=== PATIENT | female | born 1935 | race African-American/Black ===

== ENCOUNTER 2016-12-26 14:15 | Emergency (ER) | payer OTHER ==
[~2016-12-26] VITALS: Ht 165.1 cm; Wt 72.6 kg
--- NOTE | ~2016-12-26 | EKG ---
[place] [address] [facility] [place] [address] ELECTROCARDIOGRAM REPORT Name: BEVERLY HEAD Room #: DEP CHIVO Wright#: [id number] Admission: 12/26/16 Attend Phys: Discharge: 12/26/16 Date of : 33 Report #: [id number] THIS REPORT FOR: //name// [facility] ED Test Date: 2016-12-26 Test Time: 14:37:54 Pat Name: BEVERLY HEAD Department: Room: Gender: F Chief Engineering Division: [id number] : 1935 Requested By: Gayathri Strong Order Number: [id number] MD: Angel Triana Measurements Intervals [place] Rate: 63 P: 15 WY: 184 QRS: 8 QRSD: 88 T: 106 QT: 440 QTc: 451 Interpretive Statements Sinus rhythm LVH by voltage Nonspecific T abnormalities, lateral leads Compared to ECG 09/21/2014 10:04:20 Left ventricular hypertrophy now present T-wave abnormality now present Possible ischemia no longer present Prolonged QT interval no longer present Electronically Signed On 12-26-2016 22:45:11 CDT by Angel Triana [email or web address] <ELECTRONICALLY SIGNED> By: Angel Triana MD 12/26/16 2245 1437 1437 Angel Triana MD /EPI
[~2016-12-26 14:15] MED LIST: AMLODIPINE BESY10 MG PO; AZOR 10-20 MG1 EACH PO; EXELON 9.5 MG9.5 MG TD; EXELON1 EAC1 TD; EXELON1 EACH TRANSDERM; FOLTANX TABLET1 EACH PO; K-DUR 20 MEQ T20 MEQ PO; NAMENDA 10 MG T10 MG PO; NOHOMEMEDICATIONS; PHENERGAN 25 MG25 M1 PO; POTASSIUM20 PO; SEROQUEL 25 MG25 M1 PO
[2016-12-26 14:43] LABS: ABSOLUTE NEUTROPHILS 2.3 thou/uL (1.4-8.2); BASOPHILS 0.6 % (0.0-2.0); EOSINOPHILS 0.8 % (0.0-3.0); HEMATOCRIT 38.3 % (37.0-47.0); HEMOGLOBIN 12.7 gm/dL (12.0-15.0); LYMPHOCYTES 26.6 % (24.0-44.0); MCH 29.2 pg (26.0-34.0); MCHC 33.3 g/dL (28.0-37.0); MCV 87.8 fL (80.0-100.0); PLATELET COUNT 249 thou/uL (150-400); RBC 4.36 mil/uL (4.20-5.00); RDW 13.9 % (10.5-14.5); WBC 3.6 thou/uL (4.0-11.0)
[2016-12-26 14:44] LABS: MANUAL DIFF NO
[2016-12-26 15:00] LABS: ANION GAP 11 mmol/L (7-16); BUN 17 mg/dL (7-18); CALCIUM 8.8 mg/dL (8.5-10.1); CHLORIDE 103 mmol/L (98-107); CO2 24 mmol/L (21-32); CREATININE 1.4 mg/dL (0.6-1.0); GLUCOSE 152 mg/dL (74-106); POTASSIUM 3.7 mmol/L (3.5-5.1); SODIUM 138 mmol/L (136-145)
[2016-12-26 15:03] LABS: ALBUMIN 3.3 g/dL (3.4-5.0); ALKALINE PHOSPHATASE 71 U/L (46-116); DIRECT BILIRUBIN < 0.1 mg/dL (<0.1-0.3); SGOT 36 U/L (15-37); SGPT 25 U/L (30-65); TOTAL BILIRUBIN 0.7 mg/dL (<0.1-1.0); TOTAL PROTEIN 7.5 g/dL (6.4-8.2); TROPONIN-I < 0.04 ng/mL (<0.04-0.07)
[2016-12-26 15:56] LABS: URINE BILIRUBIN NEGATIVE (Negative); URINE BLOOD NEGATIVE (Negative); URINE COLOR YELLOW; URINE GLUCOSE-RANDOM* NEGATIVE (Negative); URINE KETONES 1+ (Negative); URINE PROTEIN (DIPSTICK) NEGATIVE (Negative); URINE SPECIFIC GRAVITY 1.015 (1.003-1.035)
[2016-12-26 15:57] LABS: URINE LEUKOCYTES-REFLEX 1+ (Negative)
[2016-12-26 16:06] LABS: CASTS None Seen /LPF (None Seen); CRYSTALS None Seen /LPF (None Seen); SQUAMOUS 0-3 Few /LPF (0-3); URINE RBC None Seen /HPF (0-2); URINE WBC-REFLEX 0-5 Rare /HPF (0-5)
[2016-12-26] MEDS ORDERED: KEFLEX500 MG PO (18:06)
[2016-12-26 18:31] VITALS: BP 122/64
== END 2016-12-26 18:32 | disposition home or self-care (01) ==
LOC: ER 14:15
PROVIDERS: Emergency Medicine
DX: N39.0 Urinary tract infection, site not specified (principal); E87.2 Acidosis; F03.90 Unspecified dementia, unspecified severity, without behavioral disturbance, psychotic disturbance, mood disturbance, and anxiety; I10 Essential (primary) hypertension

== ENCOUNTER 2019-01-08 10:08 | Inpatient (IN) | payer OTHER ==
[~2019-01-08] VITALS: Ht 157.5 cm; Wt 46.3 kg
[~2019-01-08 10:08] MED LIST changes: +KEFLEX500 MG PO
[2019-01-08 10:09] VITALS: BP 137/59
[2019-01-08 10:46] LABS: ABSOLUTE NEUTROPHILS 3.1 thou/uL (1.4-8.2); BASOPHILS 0.5 % (0.0-2.0); EOSINOPHILS 0.7 % (0.0-3.0); HEMATOCRIT 39.6 % (37.0-47.0); HEMOGLOBIN 13.7 gm/dL (12.0-15.0); LYMPHOCYTES 28.5 % (24.0-44.0); MCH 29.6 pg (26.0-34.0); MCHC 34.5 g/dL (28.0-37.0); MCV 85.8 fL (80.0-100.0); MONOCYTES 7.8 % (1.0-8.0); PLATELET COUNT 250 thou/uL (150-400); POLYS 62.5 % (36.0-66.0); RBC 4.62 mil/uL (4.20-5.00)
[2019-01-08 10:56] LABS: ANION GAP 11 mmol/L (7-16); BUN 14 mg/dL (7-18); CALCIUM 9.5 mg/dL (8.5-10.1); CHLORIDE 103 mmol/L (98-107); CO2 25 mmol/L (21-32); CREATININE 1.6 mg/dL (0.6-1.0); GLUCOSE 162 mg/dL (74-106); POTASSIUM 3.5 mmol/L (3.5-5.1); SODIUM 139 mmol/L (136-145)
[2019-01-08 11:01] LABS: URINE BILIRUBIN NEGATIVE (Negative); URINE BLOOD NEGATIVE (Negative); URINE CLARITY SL CLOUDY; URINE COLOR YELLOW; URINE GLUCOSE-RANDOM* NEGATIVE (Negative); URINE KETONES NEGATIVE (Negative); URINE LEUKOCYTES-REFLEX NEGATIVE (Negative); URINE NITRITE-REFLEX NEGATIVE (Negative); URINE PROTEIN (DIPSTICK) NEGATIVE (Negative)
[2019-01-08 11:05] LABS: ALBUMIN 3.6 g/dL (3.4-5.0); MAGNESIUM 2.2 mg/dL (1.8-2.4); SGOT 17 U/L (15-37); SGPT 8 U/L (30-65); TOTAL BILIRUBIN 0.9 mg/dL (<0.1-1.0); TOTAL PROTEIN 7.7 g/dL (6.4-8.2); TROPONIN-I <0.06 ng/mL (<0.06)
[2019-01-08 11:11] LABS: AMP/METHAMP Negative (Negative); BARBITURATES Negative (Negative); BENZODIAZEPINES Negative (Negative); COCAINE Negative (Negative); METHADONE Negative (Negative); OPIATES Negative (Negative); PCP Negative (Negative)
[2019-01-08 12:55] VITALS: BP 104/51
--- NOTE | 2019-01-08 13:58 | EKG ---
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
[2019-01-08 14:14] LABS: CHOLESTEROL 219 mg/dL (<200); HDL CHOLESTEROL 63 mg/dL (>40); LDL CHOLESTEROL 132 mg/dL (<100); TC:HDL 3.5 Ratio (Not establshd); TRIGLYCERIDE 122 mg/dL (<150); VLDL 24 mg/dL (<40)
[2019-01-08 14:41] LABS: FOLIC ACID 10.8 ng/mL (8.6-58.9); TSH 5.21 uIU/mL (0.358-3.740)
--- NOTE | 2019-01-08 15:43 | 2DMMODE ---
[facility] [place] [address] 2 D/M-MODE ECHOCARDIOGRAM Name: BEVERLY HEAD Room #: 170-10 ADM IN M.R.#: [id number] Admission: 01/08/19 Attend Phys: Walker Hwang Discharge: Date of : 33 Report #: [id number] THIS REPORT FOR: //name// APPROVED REPORT Study performed: 01/08/2019 14:14:03 EXAM: Comprehensive 2D, Doppler, and color-flow Echocardiogram Patient Location: ER Room #: 10 Status: routine BSA: 1.56 HR: 62 bpm BP: 113/65 mmHg Rhythm: NSR Other Information Study Quality: Adequate Technically limited study due to inability to position patient. Indications Syncope 2D Dimensions IVSd: 11.71 (7-11mm) LVOT Diam: 17.05 (18-24mm) LVDd: 35.60 mm PWd: 10.04 (7-11mm) Ascending Ao: 26.92 (22-36mm) LVDs: 23.08 (25-40mm) Aortic Root: 36.28 mm IVC: 15.00 mm Aortic Valve AoV Peak Kai.: 1.39 m/s AO Peak Gr.: 7.72 mmHg LVOT Max P.07 mmHg LVOT Max V: 1.13 m/s RISHABH Vmax: 1.85 cm2 Mitral Valve E/A Ratio: 0.7 MV Decel. Time: 353.34 ms MV E Max Kai.: 0.81 m/s MV A Kai.: 1.20 m/s MV PHT: 102.47 ms IVRT: 161.48 ms [facility] [address] [address] 2 D/M-MODE ECHOCARDIOGRAM Name: BEVERLY HEAD Room #: 170-10 [facility] IN .R.#: [id number] Admission: 01/08/19 Attend Phys: Walker Hwang Discharge: Date of : 33 Report #: [id number] Pulmonary Valve PV Peak Kai.: 1.35 m/s PV Peak Gr.: 7.28 mmHg Pulmonary Vein P Vein S: 0.37 m/s P Vein A: 0.35 m/s P Vein D: 0.25 m/s P Vein A Dur.: 101.5 msec P Vein S/D Ratio: 1.48 Tricuspid Valve TR Peak Kai.: 2.84 m/s RAP Estimate: 5.00 mmHg TR Peak Gr.: 32.35 mmHg PA Pressure: 37.00 mmHg Left Ventricle The left ventricle is normal size. There is normal LV segmental wall motion. Moderate basal septal hypertrophy is present. Left ventricular systolic function is hyperdynamic. LVEF is >70%. Mild diastolic dysfunction is present (impaired relaxation pattern). Right Ventricle The right ventricle is normal size. The right ventricular systolic function is normal. Atria Left atrium is dilated. Right atrium is dilated. Aortic Valve Aortic valve is calcified. Mild aortic regurgitation. There is no aortic valvular stenosis. Mitral Valve Mild-moderate mitral annular calcification. Trace mitral regurgitation. No evidence of mitral valve stenosis. Tricuspid Valve The tricuspid valve is normal in structure. Mild tricuspid regurgitation. Estimated PAP is 35 mmHg Pulmonic Valve Pulmonic valve is not well visualized. Great Vessels The aortic root is normal in size. The ascending aorta is normal in size. IVC is normal in size and collapses >50% with inspiration. [facility] [place] [address] 2 D/M-MODE ECHOCARDIOGRAM Name: BEVERLY HEAD Room #: 170-10 ADM IN .R.#: [id number] Admission: 01/08/19 Attend Phys: Walker Hwang Discharge: Date of : 33 Report #: [id number] Pericardium There is no pericardial effusion. There is no pleural effusion. <Conclusion> Left ventricular systolic function is hyperdynamic. There is normal LV segmental wall motion. LVEF is >70%. Mild diastolic dysfunction Both atria are dilated. Aortic valve is calcified. Mild aortic regurgitation, no stenosis. Mild-moderate mitral annular calcification. Trace mitral regurgitation. Mild tricuspid regurgitation. Estimated pulmonary artery pressure of 35 mmHg There is no pericardial effusion. <ELECTRONICALLY SIGNED> By: Beto King MD, [facility] 01/08/19 1543 1543 1543 Beto King MD, FACC /INF
[2019-01-08 18:30] VITALS: BP 133/64
[2019-01-08 19:08] VITALS: BP 155/52
[2019-01-08 23:45] VITALS: BP 131/66
[2019-01-09 04:00] VITALS: BP 159/83
--- NOTE | 2019-01-09 06:30 | NUR ---
ASSUMED CARE OF PT AT 1900. PT IS NONVERBAL, AWAKE. FOUGHT AGAINST BEING TURNED AND CLEANED, OTHERWISE CALM AND COOPERATIVE OVER NOC. DID NOT ANSWER ANY QUESTIONS. SON WAS HERE DURING ADMISSION TO ANSWER QUESTIONS. STATED PT IS NONVERBAL DUE TO ADVANCED DEMENTIA. VS HAVE BEEN STABLE. SR ON TELE, AFEBRILE. FLUIDS INFUSING ORDERED. LOW UOP, BLADDER SCANNED AND FOUND 387mL. PT URINATED RIGHT AFTER THE SCAN, INCONTINENT, WILL CONTINUE TO MONITOR. PROGRESSING TOWARDS POC GOALS.
[2019-01-09 07:52] VITALS: BP 128/69
[2019-01-09 11:45] VITALS: BP 141/63
--- NOTE | 2019-01-09 14:22 | NUR ---
INITIAL ASSESSMENT: CLARISSE reviewed chart and spoke with nursing and attending physician. Pt was admitted from home due to AMS. Pt with hx of dementia. CLARISSE contacted pt's son, Alessandro via phone to obtain info for assessment. Pt's son requested SW call him back at a later time, due to being in a meeting with an attorney at law. Per chart, pt has 24 hour care at home between family and caregivers. Pt stays in her home during the week and goes to adult day care and then stays with her son over the weekends. Pt requires assistance with ADLs. Recommendation made for pt to discharge home with HH. Discharge home is anticipated for tomorrow. CLARISSE is following to assist as needed with discharge planning.
[2019-01-09 15:47] VITALS: BP 123/92
--- NOTE | 2019-01-09 18:47 | NUR ---
ASSUMED CARE OF PATIENT AT 0700. PATIENT HAS DEMENTIA AND IS NONVERBAL. PATIENT DOES NOT SEEM TO BE IN PAIN AND VSS. PATIENT ON ROOM AIR. PATIENT REFUSES FOOD AND MEDICATION AT TIMES. SPEECH THERAPY MENTIONED SHE LIKES TO DO THESE THINGS INDEPENDENTLY.
[2019-01-09 20:10] VITALS: BP 131/70
[2019-01-10 04:30] VITALS: BP 121/67
--- NOTE | 2019-01-10 06:29 | NUR ---
ASSUMED CARE AT 1900. PT SITTING UP IN BED, FEEDING HERSELF FINGER FOODS FROM DINNER PLATE WHILE SON WAS IN THE ROOM; ATE ABOUT 75% OF HER DINNER. PT WOULD SOFTLY MUMBLE NONSENSE WORDS AND SMILE, BUT OTHERWISE DID NOT RESPOND TO STAFF QUESTIONS. WOULD PULL AT COVERS AND SLIGHTLY RESIST TURNS DURING PERICARE, BUT OTHERWISE DID NOT FIGHT DURING CARES. HAS BEEN SR ON TELE WITH HR IN 60'S. NO OTHER CONCERNS, WILL CONTINUE TO MONITOR.
[2019-01-10 07:46] VITALS: BP 137/69
[2019-01-10] MEDS ORDERED: SYNTHROID25 MC1 PO (09:55)
[2019-01-10 11:34] VITALS: BP 115/74
[2019-01-10 12:59] VITALS: BP 115/74
--- NOTE | 2019-01-10 14:03 | NUR ---
DISCHARGE NOTE: CLARISSE reviewed chart and spoke with nursing and attending physician. Pt is medically stable for discharge home today with HH services. SW spoke with pt's son, Alessandro, via phone to provide update and notify of discharge orders. SW provided options for HH agencies. No preference voiced. Pt's PCP is Dr. Anupama Ramey. Pt's family will provide transportation home this afternoon between [phone]. SW notified nursing. service planner to fax referral to [facility]. Contact info for [facility] placed in pt's discharge summary. No additional SW needs identified at this time, but is available to assist should needs arise.
--- NOTE | 2019-01-10 14:23 | NUR ---
DISCHARGE PLANNING. PATIENT DISCHARGING TO HOME WITH HOME HEALTH SERVICES. REFERRAL FAXED TO [facility]. CALL PLACED TO AMBAR LAU LIAISON TO NOTIFY. JUDI TO REVIEW PATIENT REFERRAL AND CONTACT ONCE REVIEW COMPLETE. PATIENTS PCE IS DR ADA ZUNIGA. FOLLOWING.
--- NOTE | 2019-01-10 14:44 | NUR ---
pt still is confused, and she needs help ADL, pt's vs and o2sat are stable, pt took all her medications, RN has received dr to D/C PT to home with home health . 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
[2019-01-10 15:58] VITALS: BP 145/102
--- NOTE | 2019-01-10 17:09 | NUR ---
RN has giving pt's son discharging teaching, pt's family understands well, pt goes home with home health now.
== END 2019-01-10 17:12 | disposition home health service (06) | DRG 68 ==
LOC: ER 10:08 → 3W 13:46 → EROBS 13:46 → 3W 18:41 → ENTRNSPT 01-10 16:49 → 3W 01-10 17:12
PROVIDERS: Emergency Medicine; ADMIT Hospitalist
DX: I65.22 Occlusion and stenosis of left carotid artery (principal); N18.4 Chronic kidney disease, stage 4 (severe); E46 Unspecified protein-calorie malnutrition; Z68.1 Body mass index [BMI] 19.9 or less, adult; I12.9 Hypertensive chronic kidney disease with stage 1 through stage 4 chronic kidney disease, or unspecified chronic kidney disease; F03.90 Unspecified dementia, unspecified severity, without behavioral disturbance, psychotic disturbance, mood disturbance, and anxiety; E03.9 Hypothyroidism, unspecified; Z87.891 Personal history of nicotine dependence; Z79.899 Other long term (current) drug therapy
CPT/HCPCS: 10879

== ENCOUNTER 2019-07-23 20:33 | Emergency (ER) | payer OTHER ==
[~2019-07-23] VITALS: Ht 167.6 cm; Wt 49.1 kg
[~2019-07-23 20:33] MED LIST changes: +SYNTHROID25 MC1 PO
[2019-07-23 21:46] VITALS: BP 150/95
== END 2019-07-23 21:47 | disposition home or self-care (01) ==
LOC: ER 20:33 → EDBD 20:33 → ER 21:47
DX: S31.000A Unspecified open wound of lower back and pelvis without penetration into retroperitoneum, initial encounter (principal); L91.8 Other hypertrophic disorders of the skin; I10 Essential (primary) hypertension; F03.90 Unspecified dementia, unspecified severity, without behavioral disturbance, psychotic disturbance, mood disturbance, and anxiety; Z79.899 Other long term (current) drug therapy; Z87.891 Personal history of nicotine dependence; X58.XXXA Exposure to other specified factors, initial encounter; Y93.89 Activity, other specified; Y92.89 Other specified places as the place of occurrence of the external cause; Y99.8 Other external cause status

== ENCOUNTER 2019-08-03 13:24 | Emergency (ER) | payer OTHER ==
[~2019-08-03] VITALS: Ht 162.6 cm; Wt 47.6 kg
[2019-08-03 14:24] LABS: ABSOLUTE NEUTROPHILS 3.3 thou/uL (1.4-8.2); BASOPHILS 0.3 % (0.0-2.0); EOSINOPHILS 0.5 % (0.0-3.0); HEMATOCRIT 36.8 % (37.0-47.0); HEMOGLOBIN 12.6 gm/dL (12.0-15.0); MCH 29.9 pg (26.0-34.0); MCHC 34.3 g/dL (28.0-37.0); MCV 87.4 fL (80.0-100.0); MONOCYTES 8.5 % (1.0-8.0); PLATELET COUNT 229 thou/uL (150-400); POLYS 74.7 % (36.0-66.0); RBC 4.22 mil/uL (4.20-5.00); RDW 13.3 % (10.5-14.5); WBC 4.4 thou/uL (4.0-11.0)
[2019-08-03 14:31] LABS: ANION GAP 7 mmol/L (7-16); BUN 11 mg/dL (7-18); CALCIUM 8.5 mg/dL (8.5-10.1); CHLORIDE 100 mmol/L (98-107); CO2 28 mmol/L (21-32); CREATININE 1.3 mg/dL (0.6-1.0); GLUCOSE 160 mg/dL (74-106); POTASSIUM 4.6 mmol/L (3.5-5.1); SODIUM 135 mmol/L (136-145)
[2019-08-03] MEDS ORDERED: MONTELUKAST SODI4 M1 PO (14:39)
[2019-08-03] MEDS ORDERED: CITALOPRAM10 MG/5 ML PO (14:39)
[2019-08-03 14:42] LABS: ALBUMIN 2.9 g/dL (3.4-5.0); LIPASE 89 U/L (73-393); MAGNESIUM 1.9 mg/dL (1.8-2.4); SGOT 34 U/L (15-37); SGPT 24 U/L (30-65); TOTAL BILIRUBIN 0.6 mg/dL (<0.1-1.0); TOTAL PROTEIN 6.9 g/dL (6.4-8.2); TROPONIN-I <0.06 ng/mL (<0.06)
[2019-08-03 14:47] LABS: URINE BILIRUBIN NEGATIVE (Negative); URINE BLOOD NEGATIVE (Negative); URINE CLARITY CLEAR; URINE COLOR YELLOW; URINE GLUCOSE-RANDOM* NEGATIVE (Negative); URINE KETONES NEGATIVE (Negative); URINE LEUKOCYTES-REFLEX NEGATIVE (Negative); URINE PROTEIN (DIPSTICK) NEGATIVE (Negative); URINE SPECIFIC GRAVITY 1.015 (1.005-1.035)
[2019-08-03 14:49] LABS: URINE NITRITE-REFLEX POSITIVE (Negative)
[2019-08-03 14:57] LABS: BACTERIA-REFLEX >30 Many /HPF (None Seen); SQUAMOUS 4-10 Moderate /LPF (0-3)
[2019-08-03 14:58] LABS: HYALINE CASTS 0-3 Few /LPF (None Seen)
[2019-08-03 14:59] LABS: CRYSTALS None Seen /LPF (None Seen); MUCUS 0-3 Light strn/LPF (None Seen); URINE RBC 0-2 Rare /HPF (0-2); URINE WBC-REFLEX 0-5 Rare /HPF (0-5)
[2019-08-03 15:01] LABS: RENAL EPITHELIAL CELLS 0-3 Few /LPF (None Seen); TRANSITIONAL EPITHEL CELL 0-3 Few /LPF (None Seen)
[2019-08-03] MEDS ORDERED: PROBIOTIC1 EAC7 PO (15:54)
[2019-08-03] MEDS ORDERED: KEFLEX500 M1 PO (15:54)
[2019-08-03 17:33] VITALS: BP 129/66
--- NOTE | 2019-08-05 08:00 | EKG ---
[facility] [place] [address] ELECTROCARDIOGRAM REPORT Name: BEVERLY HEAD [id number] Admission: 08/03/19 Attend Phys: Discharge: 08/03/19 Date of : [birth year] Report #: [id number] THIS REPORT FOR: cc: FAM - Family physician unknown FAM - Family physician unknown Beto King MD [facility] THIS REPORT FOR: //name// [facility] ED Test Date: 2019-08-03 Test Time: 13:40:34 Pat Name: BEVERLY HEAD Department: Room: Gender: F Clearing Inspector: conrad : 1934-01-01 Requested By: Vianney Myers Order Number: [id number] MD: Beto King Measurements Intervals [place] Rate: 66 P: 22 ND: 170 QRS: 37 QRSD: 86 T: 65 QT: 532 QTc: 558 Interpretive Statements Sinus rhythm Anteroseptal infarct, age indeterminate Prolonged QT interval Compared to ECG 01/08/2019 10:25:44 Myocardial infarct finding now present Electronically Signed On 08-05-2019 7:59:00 CDT by Beto King [email or web address] <ELECTRONICALLY SIGNED> By: Beto King MD, FAC 08/05/19 0759 1340 1340 Beto King MD, [facility] /EPI
== END 2019-08-03 17:33 | disposition home or self-care (01) ==
LOC: ER 13:24
PROVIDERS: Nurse Practitioner Family
DX: N39.0 Urinary tract infection, site not specified (principal); R53.1 Weakness; I10 Essential (primary) hypertension; F03.90 Unspecified dementia, unspecified severity, without behavioral disturbance, psychotic disturbance, mood disturbance, and anxiety; Z79.899 Other long term (current) drug therapy; Z87.891 Personal history of nicotine dependence